=== PATIENT | male | born 1945 | race Caucasian/White ===

== ENCOUNTER 2021-08-12 06:52 | Day surgery (SDC) | payer MEDICARE, OTHER ==
[2021-08-11 10:44] LABS: ALBUMIN 3.6 G/DL (3.4-5.0); ANION GAP 8 (8-16); BLOOD UREA NITROGEN 12 MG/DL (7-18); CALCIUM 8.4 MG/DL (8.5-10.1); CHLORIDE 106 MMOL/L (99-107); CREATININE 0.75 MG/DL (0.60-1.10); GLUCOSE 145 MG/DL (70-104); POTASSIUM 3.9 MMOL/L (3.5-5.1); SODIUM 139 MMOL/L (135-145); TOTAL CARBON DIOXIDE 24.6 MMOL/L (24-32); eGFR > 90 ML/MIN
[2021-08-11 10:45] LABS: BASOPHILS % (AUTO) 0.3 % (0-1); EOSINOPHILS % (AUTO) 1.1 % (0-6); HEMATOCRIT 28.5 % (42.0-52.0); HEMOGLOBIN 10.2 g/dl (14.0-17.9); LYMPHOCYTES # (AUTO) 0.8 X10'3 (1.1-4.8); MEAN CORPUSCULAR HEMOGLOBIN 37.6 PG (27.0-31.0); MEAN CORPUSCULAR HGB CONC 35.6 g/dL (33.0-36.5); MEAN CORPUSCULAR VOLUME 105.7 FL (78-98); MONOCYTES # (AUTO) 0.1 X10'3 (0-0.9); MONOCYTES % (AUTO) 4.8 % (2-12); NEUTROPHILS # (AUTO) 1.1 X10'3 (1.8-7.7); NEUTROPHILS % (AUTO) 55.8 % (42-75); PLATELET COUNT 139 X10'3 (140-440); RED CELL DISTRIBUTION WIDTH 14.8 % (11.5-14.5)
[2021-08-11 10:48] LABS: APTT 27 SECONDS (22-32)
[2021-08-11 11:38] LABS: PLATELET ESTIMATE DECREASED; TOTAL CELLS COUNTED 100
[2021-08-11 11:39] LABS: ELLIPTOCYTES 1+; SMUDGE CELLS FEW
[2021-08-12] VITALS (10 sets, daily range): BP systolic 112–148; BP diastolic 52–86
[~2021-08-12] VITALS: Ht 172.7 cm; Wt 80.3 kg
[~2021-08-12 06:52] MED LIST: ASPI-529 PO; LEVO75TA PO; LOVA20TA2 PO
[2021-08-12] MEDS ORDERED: LIDOcaine 1% w/EPI 1:200,000 10 ML, BUPIVAcaine 2.5mg/ml/PF 25 MG 10mL SQ ONE ×2 (07:10)
[2021-08-12] MEDS ORDERED: LORazepam 0.5 MG tablet PO PRN (07:10)
[2021-08-12] MEDS ORDERED: diphenhydrAMINE 25mg capsule PO PRN (07:10)
[2021-08-12] MEDS ORDERED: MULT-1249 PO (07:16)
[2021-08-12] MEDS ORDERED: CHOL500049 PO (07:16)
[2021-08-12] MEDS ORDERED: LIDOcaine/PRILOcaine 5gm cream TP ONE (08:10)
[2021-08-12] MEDS ORDERED: normal saline 1,000 ML IV SCH (09:25)
[2021-08-12] MEDS ORDERED: verapamil 2.5 mg/ml inj IV ONE (09:57)
[2021-08-12] MEDS ORDERED: nitroGLYCERIN-Tridil 50MG/D5W 250 ML IV ONE (09:57)
[2021-08-12] MEDS ORDERED: heparin 1,000unit/ml 10ml vial 10 ML ONE (09:58)
[2021-08-12] MEDS ORDERED: iohexol 350MG/ML 100ml bottle IV ONE (09:58)
[2021-08-12] MEDS ORDERED: fentaNYL/PF 50MCG/1 ML 2ML syringe ONE (09:58)
[2021-08-12] MEDS ORDERED: midazolam 1 mg/ML 2ml injection ONE (09:58)
[2021-08-12] MEDS ORDERED: LIDOcaine 1%/PF 5ML 10 MG/ML VIAL ONE (09:59)
[2021-08-12] MEDS ORDERED: normal saline 1000ml 1,000 ML IV SCH (11:25)
== END 2021-08-12 16:00 | disposition home or self-care (01) ==
LOC: SSTAY O 06:52
PROVIDERS: ATTEND Internal Medicine Cardiovascular Disease
DX: R94.39 Abnormal result of other cardiovascular function study (principal); I25.810 Atherosclerosis of coronary artery bypass graft(s) without angina pectoris; I10 Essential (primary) hypertension; E11.9 Type 2 diabetes mellitus without complications; E78.49 Other hyperlipidemia; E03.9 Hypothyroidism, unspecified; E66.3 Overweight; Z68.26 Body mass index [BMI] 26.0-26.9, adult; Z85.21 Personal history of malignant neoplasm of larynx; Z95.2 Presence of prosthetic heart valve; Z79.82 Long term (current) use of aspirin; Z79.899 Other long term (current) drug therapy; Z79.01 Long term (current) use of anticoagulants; Z90.49 Acquired absence of other specified parts of digestive tract; Z98.890 Other specified postprocedural states; Z72.89 Other problems related to lifestyle; Z82.49 Family history of ischemic heart disease and other diseases of the circulatory system
CPT/HCPCS: 36415; 76937; 80048; 85025; 85610; 85730; 93005; 93459; 99152; A6258; C1769; C1894; J1644; J2250; J3010; J3490; J7030; Q9967; 85007; 99153; A4620; A6402

== ENCOUNTER 2021-09-02 05:54 | Day surgery (SDC) | payer MEDICARE, OTHER ==
[2021-09-01 09:57] LABS: BASOPHILS % (AUTO) 0.7 % (0-1); HEMATOCRIT 28.1 % (42.0-52.0); HEMOGLOBIN 9.9 g/dl (14.0-17.9); LYMPHOCYTES # (AUTO) 0.6 X10'3 (1.1-4.8); LYMPHOCYTES % (AUTO) 41.7 % (21-51); MEAN CORPUSCULAR HEMOGLOBIN 37.1 PG (27.0-31.0); MEAN CORPUSCULAR HGB CONC 35.1 g/dL (33.0-36.5); MEAN CORPUSCULAR VOLUME 105.7 FL (78-98); MEAN PLATELET VOLUME 8.2 FL (7.4-10.4); MONOCYTES # (AUTO) 0.1 X10'3 (0-0.9); MONOCYTES % (AUTO) 5.2 % (2-12); NEUTROPHILS # (AUTO) 0.8 X10'3 (1.8-7.7); NEUTROPHILS % (AUTO) 51.4 % (42-75); PLATELET COUNT 129 X10'3 (140-440); RED BLOOD COUNT 2.66 X10'6 (4.70-6.10); RED CELL DISTRIBUTION WIDTH 15.7 % (11.5-14.5); WHITE BLOOD COUNT 1.5 X10'3 (4.5-11.0)
[2021-09-01 10:04] LABS: ALBUMIN 3.5 G/DL (3.4-5.0); ANION GAP 8 (8-16); BLOOD UREA NITROGEN 15 MG/DL (7-18); CALCIUM 8.4 MG/DL (8.5-10.1); CHLORIDE 106 MMOL/L (99-107); CREATININE 0.79 MG/DL (0.60-1.10); GLUCOSE 150 MG/DL (70-104); POTASSIUM 3.8 MMOL/L (3.5-5.1); SODIUM 141 MMOL/L (135-145); TOTAL CARBON DIOXIDE 27.5 MMOL/L (24-32); eGFR > 90 ML/MIN
[2021-09-01 10:09] LABS: APTT 26 SECONDS (22-32)
[2021-09-01 10:39] LABS: TOTAL CELLS COUNTED 100
[2021-09-01 10:40] LABS: ELLIPTOCYTES FEW; PLATELET ESTIMATE DECREASED; TEAR DROP CELLS FEW
[~2021-09-02] VITALS: Ht 172.7 cm; Wt 80.2 kg
[2021-09-02] VITALS (18 sets, daily range): BP systolic 104–146; BP diastolic 57–75
[~2021-09-02 05:54] MED LIST changes: +CHOL500049 PO; +MULT-1249 PO
[2021-09-02] MEDS ORDERED: ROSU40TA22 PO (06:22)
[2021-09-02] MEDS ORDERED: normal saline 1,000 ML IV SCH (06:30)
[2021-09-02] MEDS ORDERED: LORazepam 0.5 MG tablet PO PRN (06:30)
[2021-09-02] MEDS ORDERED: diphenhydrAMINE 25mg capsule PO PRN (06:30)
[2021-09-02] MEDS ORDERED: nitroGLYCERIN-Tridil 50MG/D5W 250 ML IV ONE (07:36)
[2021-09-02] MEDS ORDERED: fentaNYL/PF 50MCG/1 ML 2ML syringe ONE (07:36)
[2021-09-02] MEDS ORDERED: iohexol 350MG/ML 100ml bottle IV ONE ×2 (07:36→08:53)
[2021-09-02] MEDS ORDERED: verapamil 2.5 mg/ml inj IV ONE (07:36)
[2021-09-02] MEDS ORDERED: midazolam 1 mg/ML 2ml injection ONE (07:36)
[2021-09-02] MEDS ORDERED: heparin 1,000unit/ml 10ml vial 10 ML ONE (07:36)
[2021-09-02] MEDS ORDERED: LIDOcaine 1% (10mg/ml) 2ml vial ONE (07:36)
[2021-09-02] MEDS ORDERED: heparin 25,000 UNIT/250ml bag 250 ML IV ONE (08:07)
[2021-09-02] MEDS ORDERED: clopidogrel 300mg tablet ONE (09:22)
[2021-09-02] MEDS ORDERED: aspirin 81mg, enteric-coated 1 TAB TABLET.DR PO ONE (10:10)
[2021-09-02] MEDS ORDERED: normal saline 1,000 ML IV ONE (10:10)
[2021-09-03] MEDS ORDERED: clopidogrel 75mg tablet PO SCH (08:00)
== END 2021-09-02 17:01 | disposition home or self-care (01) ==
LOC: SSTAY O 05:54
PROVIDERS: ATTEND Internal Medicine Cardiovascular Disease
DX: I25.10 Atherosclerotic heart disease of native coronary artery without angina pectoris (principal); I25.810 Atherosclerosis of coronary artery bypass graft(s) without angina pectoris; E11.9 Type 2 diabetes mellitus without complications; I10 Essential (primary) hypertension; E66.3 Overweight; E03.9 Hypothyroidism, unspecified; E78.5 Hyperlipidemia, unspecified; E66.9 Obesity, unspecified; Z95.4 Presence of other heart-valve replacement; Z79.899 Other long term (current) drug therapy; Z90.49 Acquired absence of other specified parts of digestive tract; Z79.01 Long term (current) use of anticoagulants; Z98.890 Other specified postprocedural states; Z95.1 Presence of aortocoronary bypass graft
CPT/HCPCS: 76937; 80048; 85025; 85347; 85610; 85730; 93005; 99152; 99153; C1725; C1751; C1769; C1874; C1894; C9600; J1644; J2250; J3010; J3490; J7030; Q0163; Q9967; 85007; A4620; A5120; A6258; A6402; C9601

== ENCOUNTER 2022-12-02 14:04 | Emergency (ER) | payer MEDICARE, OTHER ==
[~2022-12-02] VITALS: Ht 172.7 cm; Wt 71.8 kg
[~2022-12-02 14:04] MED LIST changes: -LOVA20TA2 PO; +ROSU40TA22 PO
[2022-12-02] MEDS ORDERED: acetaminophen 325mg tablet PO ONE (14:30)
[2022-12-02] MEDS ORDERED: normal saline 1000ml 1,000 ML IV ONE ×2 (15:20)
[2022-12-02] MEDS ORDERED: CefTRIAXone 2gm/D5W 50ml BAG 50 ML IV ONE (15:20)
[2022-12-02] MEDS ORDERED: azithromycin 250mg tablet PO ONE (15:20)
[2022-12-02 15:24] LABS: BASOPHILS % (AUTO) 0.9 % (0-1); EOSINOPHILS % (AUTO) 0 % (0-6); HEMATOCRIT 26.1 % (42.0-52.0); HEMOGLOBIN 9.2 g/dl (14.0-17.9); LYMPHOCYTES # (AUTO) 0.1 X10'3 (1.1-4.8); LYMPHOCYTES % (AUTO) 2.4 % (21-51); MEAN CORPUSCULAR HEMOGLOBIN 37.3 PG (27.0-31.0); MEAN CORPUSCULAR HGB CONC 35.1 g/dL (33.0-36.5); MEAN CORPUSCULAR VOLUME 106.2 FL (78-98); MEAN PLATELET VOLUME 8.3 FL (7.4-10.4); MONOCYTES # (AUTO) 0.2 X10'3 (0-0.9); MONOCYTES % (AUTO) 4.9 % (2-12); NEUTROPHILS # (AUTO) 3.3 X10'3 (1.8-7.7); NEUTROPHILS % (AUTO) 91.8 % (42-75); PLATELET COUNT 128 X10'3 (140-440); RED BLOOD COUNT 2.45 X10'6 (4.70-6.10); RED CELL DISTRIBUTION WIDTH 15.6 % (11.5-14.5); WHITE BLOOD COUNT 3.5 X10'3 (4.5-11.0)
[2022-12-02 15:36] LABS: ALANINE AMINOTRANSFERASE 34 U/L (12-78); ALBUMIN 3.3 G/DL (3.4-5.0); ALBUMIN/GLOBULIN RATIO 0.8 (1.1-1.5); ALKALINE PHOSPHATASE 115 IU/L (46-116); ANION GAP 14 (8-16); ASPARTATE AMINO TRANSFERASE 46 U/L (10-37); BILIRUBIN,TOTAL 2.1 MG/DL (0.1-1.0); BLOOD UREA NITROGEN 18 MG/DL (7-18); BUN/CREATININE RATIO 19.8 (10.0-20.0); CALCIUM 8.4 MG/DL (8.5-10.1); CHLORIDE 97 MMOL/L (99-107); CREATININE 0.91 MG/DL (0.60-1.10); GLUCOSE 226 MG/DL (70-104); POTASSIUM 3.4 MMOL/L (3.5-5.1); SODIUM 132 MMOL/L (135-145); TOTAL PROTEIN 7.2 G/DL (6.4-8.2); eCRCL 68 ML/MIN; eGFR 81 ML/MIN
[2022-12-02] MEDS ORDERED: dexamethasone sod phosphate 10mg/ml inj IV STA (15:36)
[2022-12-02 15:41] LABS: BILIRUBIN,URINE NEGATIVE (Neg); CLARITY,URINE SLIGHTLY CLOUDY (Clear); COLOR,URINE YELLOW (Yellow); GLUCOSE, URINE 500 mg/dl (Neg); KETONES,URINE 40 mg/dl (Neg); LEUKOCYTE ESTERASE ,URINE NEGATIVE (Neg); NITRITES, URINE NEGATIVE (Neg); OCCULT BLOOD,URINE SMALL (Neg); PH,URINE 5.5 (4.8-8.0); PROTEIN,URINE 100 mg/dl (Neg)
[2022-12-02 15:46] LABS: UA COLLECTION TYPE CLN CATCH MIDSTREAM
[2022-12-02 15:47] LABS: MUCUS STRANDS MODERATE /LPF (Neg); SQUAMOUS EPITHELIAL CELL,UR FEW /LPF (FEW)
[2022-12-02 15:48] LABS: COARSE GRANULAR CAST 0-3 /LPF (NEGATIVE); WBC,URINE 0-4 /HPF (0-4)
[2022-12-02 15:49] LABS: AMORPHOUS URATES 1+; BACTERIA,URINE FEW /HPF (Neg)
[2022-12-02 16:50] LABS: MAGNESIUM 2.1 MG/DL (1.5-2.4)
[2022-12-02 17:34] VITALS: PULSE 88
[2022-12-02 17:39] VITALS: RESP 18
--- NOTE | 2022-12-02 18:26 | NUR ---
Oral report recieved from [facility]
[2022-12-02] MEDS ORDERED: PRED20TA PO (18:40)
[2022-12-02] MEDS ORDERED: ALBU8HFA PO (18:40)
[2022-12-02] MEDS ORDERED: AZI25OT PO (18:40)
--- NOTE | 2022-12-02 18:45 | NUR ---
pt is a&o x4, ambulatory, VSS. Per MD ready to DC. pt accompanied by family member.
[2022-12-02 19:01] VITALS: BP 103/57; TEMP 98.9; O2SAT 97
== END 2022-12-02 19:04 | disposition home or self-care (01) ==
LOC: ER 14:05
DX: U07.1 COVID-19 (principal); R05.9 Cough, unspecified; R53.1 Weakness; E78.00 Pure hypercholesterolemia, unspecified; E11.9 Type 2 diabetes mellitus without complications; Z79.1 Long term (current) use of non-steroidal anti-inflammatories (NSAID); Z79.2 Long term (current) use of antibiotics; Z79.899 Other long term (current) drug therapy
CPT/HCPCS: 36415; 71045; 80053; 81001; 82948; 83605; 83735; 84145; 85025; 87040; 87077; 87186; 87502; 87503; 87811; 96365; 96366; 96375; 99284; J0696; J1100; J7030

== ENCOUNTER → 2023-03-11 | Outpatient (CLI) | payer MEDICARE, OTHER ==
[~2023-03-11] VITALS: Ht 172.7 cm; Wt 77.1 kg
[~2023-03-11] MED LIST changes: +albuterol 2.5 MG/3 ML nebule NEB PRN
[2023-03-11 09:07] VITALS: PULSE 66; RESP 16; O2SAT 99
== END | disposition home or self-care (01) ==
LOC: RT 08:33
PROVIDERS: ATTEND Chiropractor
DX: I08.3 Combined rheumatic disorders of mitral, aortic and tricuspid valves (principal); I25.10 Atherosclerotic heart disease of native coronary artery without angina pectoris; R06.02 Shortness of breath; Z96.611 Presence of right artificial shoulder joint
CPT/HCPCS: 71046; 93306; 94060; 94760